=== PATIENT | female | born 1980 | race Caucasian/White ===

== ENCOUNTER 2017-07-04 23:36 | Emergency (ER) | payer OTHER ==
[~2017-07-04] VITALS: Ht 169.5 cm; Wt 98.3 kg
[2017-07-04 23:44] VITALS: Ht 169.5 cm; Wt 98.3 kg
[2017-07-05] MEDS ORDERED: METH-445 PO (00:18)
[2017-07-05] MEDS ORDERED: SERT-234 PO (00:18)
[2017-07-05] MEDS ORDERED: IBUP-103 PO (00:18)
[2017-07-05] MEDS ORDERED: ALPR1TAB3 PO (00:18)
[2017-07-05] MEDS ORDERED: SERT25TA PO (00:18)
[2017-07-05] MEDS ORDERED: LIDODERM (LIDOCAINE) PATCH 5% TD STA (00:24)
[2017-07-05] MEDS ORDERED: SODIUM CHLORIDE 0.9% 1000ML 1,000 ML IV STA (00:24)
[2017-07-05] MEDS ORDERED: DIAZEPAM INJ 5 MG/ML 2 ML CARP IV STA (00:24)
[2017-07-05] MEDS ORDERED: ONDANSETRON INJ 2 MG/ML 2 ML VIAL IV STA (00:24)
[2017-07-05] MEDS ORDERED: HYDROCODONE/ACETAMIN 5/325MG TAB PO STA (01:52)
--- NOTE | 2017-07-05 01:52 | EMERGENCY ROOM VISIT NOTE ---
History Report prepared by Gerardo: Prosper Dunn Under the Supervision of: Dr. Alisia Maher D.O. First contact with patient: 23:48 Chief Complaint: VOMITING Stated Complaint: SEVERE VOMITING,NAUSEA,DIARRHEA,BACK,ABD PAIN History of Present Illness The patient is a 36 year old female who presents to the Emergency Room with complaints of persistent vomiting beginning 19 hours ago. She states that she was initially vomiting once every 20 minutes. She was seen at the [facility] ED earlier today for similar symptoms. The patient states that she left [facility] because "they had terrible bedside manner". She states that the physician at [facility] was intending to admit the patient as an inpatient. The patient also complains of abdominal, diarrhea, and back pain. She states that she has not vomited in nine hours. She has a history of chronic back pain secondary to degenerative disc disease. She often gets pain radiating down her legs, as well as numbness and tingling down her right leg. The patient states that she has had diarrhea for two days. She has a history of endometriosis. She is on a Depo shot. The patient denies bloody stool, or loss of continence. She has never had a colonoscopy. She notes that she has not been eating, drinking, or sleeping well. Source of History: patient Onset: 19 hours ago Quality: other (vomiting) Timing: other (persistent) Associated Symptoms: + abdominal pain, + back pain, + diarrhea (beginning two days ago), No hematochezia Note: The patient denies loss of continence. Review of Systems See HPI for pertinent positives & negatives. A total of 10 systems reviewed and were otherwise negative. Past Medical & Surgical Medical Problems: (1) Degenerative disc disease (2) Endometriosis Family History No pertinent family history stated. Social History Smoking Status: Current Every Day Smoker Current/Historical Medications Scheduled Alprazolam (Xanax), 1 MG PO HS Dicyclomine Hcl (Bentyl), 20 MG PO Q8 Ondasetron Odt (Zofran Odt), 4 MG SL Q8 Sertraline (Zoloft), 25 MG PO DAILY Sertraline (Zoloft), 100 MG PO DAILY Scheduled PRN Hydrocodon/Acetaminophen 5MG/300MG (Vicodin (5MG/300MG)), 1 TAB PO Q6H PRN for Pain Ibuprofen Tab (Advil), 200-600 MG PO Q4H PRN for Pain Methocarbamol (Robaxin), Unknown Dose PO DIRECTED PRN for BACK PAIN Allergies Coded Allergies: Amoxicillin (Verified Allergy, Unknown, HAPPENED A CHILD-"THINKS HIVES "., 07/05/17) Physical Exam Vital Signs Date Time Temp Pulse Resp B/P (MAP) Pulse Ox O2 Delivery O2 Flow Rate FiO2 07/05/17 02:51 37.0 86 20 123/82 98 Room Air 07/04/17 23:44 38.0 117 20 121/81 96 Room Air Physical Exam GENERAL: alert, anxious appearing, well nourished, no distress, non-toxic EYE EXAM: normal conjunctiva, PERRL and EOM's grossly intact OROPHARYNX: no exudate, no erythema, lips, buccal mucosa, and tongue normal and mucous membranes are moist NECK: supple, no nuchal rigidity, no adenopathy, non-tender LUNGS: Clear to auscultation. Normal chest wall mechanics HEART: no murmurs, S1 normal and S2 normal ABDOMEN: abdomen obese, soft, normo-active bowel sounds, no masses, no rebound or guarding. Mild right sided abdominal discomfort. BACK: Back is symmetrical on inspection and there is no deformity. No midline step-off. No CVA tenderness. SKIN: no rashes and no bruising UPPER EXTREMITIES: upper extremities are grossly normal. LOWER EXTREMITIES: No pitting edema. NEURO EXAM: Normal sensorium, cranial nerves II-XII grossly intact, normal speech, no gross weakness of arms, no gross weakness of legs. Medical Decision & Procedures Laboratory Results Test 07/05/17 02:39 Bedside Lactic Acid Venous 0.67 mmol/L (0.90-1.70) Laboratory results per my review. Medications Administered Medications (Trade) Dose Ordered Sig/Jenni Route Start Time Stop Time Status Last Admin Dose Admin Sodium Chloride 1,000 ml @ 999 mls/hr Q1H1M STAT IV 07/05/17 00:24 07/05/17 01:24 DC 07/05/17 00:24 999 MLS/HR Ondansetron HCl (Zofran Inj) 4 mg NOW STAT IV 07/05/17 00:24 07/05/17 00:26 DC 07/05/17 00:55 4 MG Diazepam (Valium Inj) 5 mg NOW STAT IV 07/05/17 00:24 07/05/17 00:26 DC 07/05/17 00:55 5 MG Lidocaine (Lidoderm Patch 5%) 1 patch NOW STAT TD 07/05/17 00:24 07/05/17 00:26 DC 07/05/17 01:08 1 PATCH Dicyclomine HCl (Bentyl Cap) 20 mg NOW ONCE PO 07/05/17 02:00 07/05/17 02:01 DC 07/05/17 02:13 20 MG Acetaminophen/ Hydrocodone Bitart (Omar 5/325 Tab) 1 tab NOW STAT PO 07/05/17 01:52 07/05/17 01:54 DC 07/05/17 02:13 1 TAB ED Course 2356: The patient was evaluated in room C6. A complete history and physical exam was performed. 0103: Review of medical records from [facility] included ED note with accompanying labs, no radiology report transmitted. ED note states CT showed colitis at the cecum and ascending colon. 0112: I updated the patient and explained her test results. 0245: Upon reevaluation, the patient is feeling better. I discussed the findings and the treatment plan with the patient. She verbalizes agreement and understanding. The patient was discharged home. Medical Decision Differential diagnosis: Etiologies such as gastroenteritis, food borne illness, infections, appendicitis , diverticulitis, inflammatory bowel disease, obstruction, GI bleed, biliary pathology, as well as others were entertained. Pt well appearing here, no recurrent vomiting/diarrhea. Abdominal and back pain improved. VS stable, no fevers. Pt tolerated po and reported improvement in condition. Discussed all results from [facility] earlier today with pt at bedside. Given additional IVF. Labs from [facility] showed slightly elevated lactate, repeat here markedly improved. Doubt bacteremia/sepsis, doubt mesenteric ischemia, likely initially elevated due to dehydration. Discussed with pt f/u with PCP, f/u with GI for likely additional evaluation, solomon if sx were persistent. Pt states she has mild slightly looser stools since having her gallbladder removed. Discussed with sx to watch/return for, she verbalized understanding and was agreeable with plan. I did not feel pt required repeat imaging given improving symptoms and labs/imaging just performed 6-8 hours prior. Pt with clinical trials specialist, advised close f/u with them regarding persistent low back pain. No sx to suggest cauda equina, doubt epidural abscess /hematoma, doubt uti/pyelo/stone. Medication Reconcilliation Current Medication List: was personally reviewed by me Blood Pressure Screening Patient's blood pressure: Normal blood pressure Blood pressure disposition: Did not require urgent referral Impression Primary Impression: Nausea, vomiting, and diarrhea Additional Impressions: Colitis Chronic back pain Lumbar radiculopathy Scribe Attestation The scribe's documentation has been prepared under my direction and personally reviewed by me in its entirety. I confirm that the note above accurately reflects all work, treatment, procedures, and medical decision making performed by me. Departure Information Dispostion Home / Self-Care Prescriptions Dicyclomine Hcl (BENTYL) 20 Mg Tab 20 MG PO Q8 for Pain, #20 TAB Prov: Alisia Maher, DO 07/05/17 Hydrocodon/Acetaminophen 5MG/300MG (VICODIN (5MG/300MG)) 1 Tab Tab 1 TAB PO Q6H Y for Pain, #5 TAB Prov: Alisia Maher, DO 07/05/17 Ondasetron Odt (ZOFRAN ODT) 4 Mg Tab 4 MG SL Q8 for Nausea, #20 TAB Prov: Alisia Maher, DO 07/05/17 Referrals No Doctor, Assigned (PCP) Patient Instructions My [facility] Additional Instructions Please follow up with your family doctor. Please have them recheck your blood sugar level given that it was mildly elevated here. Please make sure you're taking plenty of water daily, and avoid soda and sweets. Please also discussed with them possible need for evaluation by GI given the findings of colitis on the CAT scan. Given your family history you may need additional evaluation for inflammatory bowel disease, particularly if her symptoms do not improve. Please sip clear liquids at frequent intervals to stay well-hydrated, and eat a bland diet as tolerated until you're feeling better. If you develop any recurrent vomiting, have worsening diarrhea, noticed blood with her bowel movements, had fevers or chills, worsening pain, or you've any other new concerns, please return the emergency room. Problem Qualifiers Additional Impressions: Chronic back pain Back pain location: low back pain Back pain laterality: bilateral Sciatica presence: with sciatica Sciatica laterality: sciatica of right side Qualified Codes: M54.41 - Lumbago with sciatica, right side; G89.29 - Other chronic pain
[2017-07-05] MEDS ORDERED: DICYCLOMINE HCL 10 MG CAP PO ONE (02:00)
[2017-07-05] MEDS ORDERED: ONDA4TAB10 SL (02:37)
[2017-07-05] MEDS ORDERED: DICY20TA35 PO (02:37)
[2017-07-05] MEDS ORDERED: HYDR-3419 PO (02:37)
[2017-07-05 02:51] VITALS: BP 123/82; PULSE 86; TEMP 37; O2SAT 98
== END 2017-07-05 03:07 | disposition home or self-care (01) ==
LOC: C.EDB 23:37 → C.EDC 07-05 03:07
DX: K52.9 Noninfective gastroenteritis and colitis, unspecified (principal); M54.16 Radiculopathy, lumbar region; G89.29 Other chronic pain; M54.9 Dorsalgia, unspecified; N80.9 Endometriosis, unspecified; F17.200 Nicotine dependence, unspecified, uncomplicated; Z79.899 Other long term (current) drug therapy; Z88.1 Allergy status to other antibiotic agents